=== PATIENT | male | born 1945 | race Caucasian/White ===

== ENCOUNTER 2025-05-26 16:25 | Observation (INO) | payer MEDICARE, BC, SELFPAY ==
[2025-05-26 10:23] VITALS: BP 121/79
[2025-05-26 12:00] VITALS: BP 118/69
[2025-05-26] MEDS: NSS 1000 IV (12:17)
--- NOTE | 2025-05-26 12:36 | ED.GENMED ---
History of Present Illness
<Kamran Dawn PA-C - Last Filed: 05/26/25 14:41>
General
Chief Complaint: Fall
Time Seen by Provider: 05/26/25 11:22
History of Present Illness
History of Present Illness:
80-year-old male with history of dementia presents to the emergency department with his spouse and son for evaluation of increasing falls over the past week. They state that he initially had a fall in February and was seen at [facility] where he
was diagnosed with an intracranial hemorrhage and multiple rib fractures. He was sent to rehab for a short period of time and since being discharged from rehab greater than 1 month ago he has been at his baseline. He does have shuffling gait but
does not fall often until the past week. Seems to have decreased p.o. intake and decreased interaction with family as well. History is unable to be obtained from the patient secondary to severe dementia. 2 of the 3 falls were witnessed, no known
head strike. He has not been shown to complain of any pain whatsoever
Review of Systems
<Kamran Dawn PA-C - Last Filed: 05/26/25 14:41>
Review of Systems
Allergies reviewed?: Yes
All Other Systems: ROS reviewed and negative except as documented in HPI and ROS
Phy Exam
<Kamran Dawn PA-C - Last Filed: 05/26/25 14:41>
Physical Exam
Physical Exam:
GEN: Chronically ill-appearing, thin and underweight, no distress
HEENT: Normocephalic and atraumatic, oral mucosa moist, no scleral icterus
Cardiac: Regular rate
Lung: No respiratory distress, no tachypnea
MSK: No gross deformity or injuries. No midline C/T/L-spine tenderness, pelvis stable with no crepitus, bilateral hip range of motion normal
Skin: Good color, no pallor or jaundice, no rashes
Neuro: Alert, minimally interactive, follows commands
Psych: Calm, cooperative
Course
<Kamran Dawn PA-C - Last Filed: 05/26/25 14:41>
Orders/Labs/Results
Orders:
Orders
05/26/25 11:57
0.9% Sodium Chloride 1000 ml [Nss] 1,000 ml IV BOLUS
05/26/25 11:58
CT Head W/o Iv Contrast Urgent
Comment:
Reason For Exam: multiple falls
05/26/25 12:14
Basic Metabolic Panel Urgent
Complete Blood Count/With Diff Urgent
05/26/25 12:35
Urinalysis Reflex To Culture Urgent
Date Specimen was Collected: 05/26/25
Time Specimen was Collected: 12:19
Urine Microscopic Reflex Cult Urgent
Urine Culture Urgent
RAJINDER Source: U
Specimen Description:
Date Specimen was Collected: 05/26/25
Time Specimen was Collected: 12:19
Abnormal Lab Results
05/26/25 05/26/25
12:14 12:35
RBC 4.68 L 10^6/uL
(4.70-6.10)
Absolute Neuts (auto) 7.0 H 10^3/uL
(1.4-6.5)
Absolute Monos (auto) 1.0 H 10^3/uL
(0.1-0.6)
Lymphocytes % 17.9 L %
(20.5-51.1)
Monocytes % 9.8 H %
(1.7-9.3)
Urine Ketones 1+ A
(Negative)
Leukocyte Esterase Rfl 1+ A
(Negative)
Urine Bacteria (Reflex) Moderate A
(Negative)
Urine Albumin (Reflex) 1+ A
(Neg - Trace)
05/26/25 12:14
05/26/25 12:14
Vital Signs
Initial and Last Documented VS:
Initial Vital Signs
Pulse Resp BP Pulse Ox
94 16 121/79 97
05/26/25 10:23 05/26/25 10:23 05/26/25 10:23 05/26/25 10:23
Last Documented Vital Signs
Pulse Resp BP Pulse Ox
88 16 118/69 97
05/26/25 12:00 05/26/25 12:00 05/26/25 12:00 05/26/25 12:38
<Shane Lancaster, DO - Last Filed: 05/26/25 14:25>
Orders/Labs/Results
Orders:
Orders
05/26/25 11:57
0.9% Sodium Chloride 1000 ml [Nss] 1,000 ml IV BOLUS
05/26/25 11:58
CT Head W/o Iv Contrast Urgent
Comment:
Reason For Exam: multiple falls
05/26/25 12:14
Basic Metabolic Panel Urgent
Complete Blood Count/With Diff Urgent
05/26/25 12:35
Urinalysis Reflex To Culture Urgent
Date Specimen was Collected: 05/26/25
Time Specimen was Collected: 12:19
Urine Microscopic Reflex Cult Urgent
Urine Culture Urgent
RAJINDER Source: U
Specimen Description:
Date Specimen was Collected: 05/26/25
Time Specimen was Collected: 12:19
Abnormal Lab Results
05/26/25 05/26/25
12:14 12:35
RBC 4.68 L 10^6/uL
(4.70-6.10)
Absolute Neuts (auto) 7.0 H 10^3/uL
(1.4-6.5)
Absolute Monos (auto) 1.0 H 10^3/uL
(0.1-0.6)
Lymphocytes % 17.9 L %
(20.5-51.1)
Monocytes % 9.8 H %
(1.7-9.3)
Urine Ketones 1+ A
(Negative)
Leukocyte Esterase Rfl 1+ A
(Negative)
Urine Bacteria (Reflex) Moderate A
(Negative)
Urine Albumin (Reflex) 1+ A
(Neg - Trace)
05/26/25 12:14
05/26/25 12:14
Vital Signs
Initial and Last Documented VS:
Initial Vital Signs
Pulse Resp BP Pulse Ox
94 16 121/79 97
05/26/25 10:23 05/26/25 10:23 05/26/25 10:23 05/26/25 10:23
Last Documented Vital Signs
Pulse Resp BP Pulse Ox
88 16 118/69 97
05/26/25 12:00 05/26/25 12:00 05/26/25 12:00 05/26/25 12:38
<Kamran Dawn PA-C - Last Filed: 05/26/25 14:41>
MDM/Problems Addressed
MDM/Problems Addressed:
Unfortunately that the patient's spouse does not feel as though she can continue to care for him given his progressive symptoms. His workup reveals no acute medical pathology and CT shows no evidence for traumatic injury to the brain. Will admit
to the hospitalist service for further management and placement considerations
<Kamran Dawn PA-C - Last Filed: 05/26/25 14:41>
*Pulse Oximetry
SaO2: 97
Oxygen Mode of Delivery: Room air
Patient hypoxic: no
*Critical Care Note
Total Time (30-74mins, 75-104mins- exclusive of procedures): Not Applicable
ED Attending Note
<Kamran Dawn PA-C - Last Filed: 05/26/25 14:41>
-
Portions of this chart may have been created with voice recognition software.� Occasional wrong word or��sound alike� substitutions may have occurred due to the inherent limitations of voice recognition software.
<Shane Lancaster, DO - Last Filed: 05/26/25 14:25>
ED Attending Note
Patient seen and examined by attending physician: Yes
I performed the substantive portion of visit, reviewed & personally made and approve the management plan that is documented in note by myself or KEELY.: Yes
ED Attending Note:
The patient has been having weeks of functional decline. The patient did have a head bleed in the past but CT today is unremarkable. Urinalysis does not show any clear sign of infection. CBC and chemistries unremarkable. However the patient has
worsening functional decline, advanced age, significant aphasia, appears generally weak, and can no longer care for him at home.
Discharge Plan
Departure
Patient Disposition: Admit
Date of Disposition: 05/26/25
Time of Disposition: 14:11
Presentation/result/management discussed w/ accepting MD/DO: Hospitalist
Discharge Problem:
Adult failure to thrive, Dementia
Referrals:
Haris Trevino MD [Family Provider, Family Practice]
Interventions
Interventions:
*Risk Screen - Suicide Last Done: 05/26/25 11:33
*General Assessment Last Done: 05/26/25 11:33
*Neglect/Abuse Screening Last Done: 05/26/25 11:33
*ED- Fall Risk Assessment Last Done: 05/26/25 11:33
ED-Musculoskeletal Assessment Last Done: 05/26/25 11:33
ED- Neurological Assessment Last Done: 05/26/25 11:33
ED-Skin Assessment Last Done: 05/26/25 11:33
Discharge Date and Time
Print Language: GEORGIAN
[2025-05-26 12:40] LABS: Hematocrit 43.4 % (39.0-52.0); Hemoglobin 14.5 g/dL (13.0-18.0); Mean Corp Hgb Conc. 33.4 g/dL (33.0-37.0); Mean Corpuscular Volume 92.7 fL (80.0-94.0); Nucleated Red Blood Cells % 0 % (-); Platelet Count 204 10^3/uL (130-400); Red Cell Dist. Width 13.5 % (11.5-14.5)
[2025-05-26 12:53] LABS: Blood Urea Nitrogen 17 mg/dl (9-20); Calcium 9.2 mg/dl (8.4-10.2); Carbon Dioxide 29 mmol/L (22-30); Chloride 106 mmol/L (98-107); Glucose 98 mg/dl (70-99); Sodium 137 mmol/L (135-145); eGFR > 60.00
[2025-05-26 13:20] LABS: Urine Character Clear (Clear)
[2025-05-26 13:37] LABS: Urine Red Blood Cell 0-2 /HPF (0-2); Urine White Cell 0-2 /HPF (0-5)
--- NOTE | 2025-05-26 14:58 | HPS.HSE ---
Addendum entered and electronically signed by Edgar Russo MD 06/07/25 21:18:
Home meds not available at time of admission.
Original Note:
Family Physician
-
Family Physician: Haris Trevino
Chief Complaint
-
falls
History of Present Illness
80-year-old male past medical history of severe dementia with agitation, recent brain hemorrhage in February, cervical spine fracture in February, nephrolithiasis, prostate cancer status post TURP, presenting for increasing falls since February. He had a fall
in February and was seen at [facility] where he was diagnosed with intracranial hemorrhage and multiple rib fractures and spine fracture. Sent back to rehab for short period of time and then discharged home. He has a chronic shuffling gait
which has gotten worse.
He was diagnosed with dementia in 2019. He was seeing neurology. At baseline he cannot speak and he has very advanced dementia. He sometimes does get aggressive recently.
He has had cough for the past few weeks. No shortness of breath. He has been having regular bowel movements. No fever, vomiting or diarrhea. He has been eating regular food but recently did have some difficulty swallowing.
notes that currently he looks uncomfortable and he is having occasional jerking movements.
He is a former smoker. No longer smokes or drinks alcohol.
Medical History
Past Medical History
Past Medical History: Reports Other (severe dementia with agitation, recent brain hemorrhage in February, cervical spine fracture in February, nephrolithiasis, prostate cancer status post TURP)
Past Surgical History: Reports None
Social History
Tobacco: Former Smoker
Alcohol: Former
Drug: None
Family History
Family History: Not pertinent
Allergies / Home Medications
Allergies reflects when Allergies were last updated in [facility].
Home Medications with original date entered in [facility]
Allergy/Medication List:
Allergies
Allergy/AdvReac Type Severity Reaction Status Date / Time
No Known Allergies Allergy Unverified 05/26/25 10:26
Review of Systems
-
History Source: Patient
A 12 point ROS was completed and negative except as noted: Yes
Constitutional: Reports No Symptoms
EENT: Reports No Symptoms
Respiratory: Reports No Symptoms
Cardiac: Reports No Symptoms
Abdomen/GI: Reports No Symptoms
: Reports No Symptoms
Musculoskeletal: Reports No Symptoms
Skin: Reports No Symptoms
Neurological: Reports No Symptoms
Endocrine: Reports No Symptoms
Hematologic/Lymphatic: Reports No Symptoms
Psych: Reports No Symptoms
Physical Exam
Vital Signs
Vital Signs
Pulse Resp BP Pulse Ox
88 16 118/69 97
05/26/25 12:00 05/26/25 12:00 05/26/25 12:00 05/26/25 12:38
Physical Exam
General: Well Developed, Well Nourished and No Apparent Distress
HEENT: NormoCephalic, Moist mucous membranes and Atraumatic
Respiratory: Clear
Cardiac: S1/S2 and Regular Rhythm; No Murmur or Rub
GI: Soft, Non Tender, Non Distended and Normal Bowel Sounds; No Organomegaly
Rectal: Deferred by Provider
Musculoskeletal: No Clubbing, No Cyanosis and No Edema
Skin: No Rash
Neuro: Nonfocal/grossly intact
Laboratory Results
-
05/26/25 12:14
05/26/25 12:14
Laboratory Results
Total Bilirubin Cancelled 05/26/25 12:14
AST Cancelled 05/26/25 12:14
ALT Cancelled 05/26/25 12:14
Alkaline Phosphatase Cancelled 05/26/25 12:14
Data Reviewed
-
Lab Data: Labs Reviewed by me
Old Records: Reviewed
Impression/Plan
-
IMPRESSION:
PLAN:
# Ambulatory dysfunction/falls secondary to progressive severe dementia
-On examination may be currently having myoclonic jerks due to severe Alzheimer's dementia
- CT head shows no acute abnormality
-Urinalysis unremarkable
-Check chest x-ray to evaluate for aspiration pneumonia given cough for 3 weeks
-Check speech and swallow evaluation
- PT/OT, case management, needs memory care
- Continue donepezil, memantine, aripiprazole
Severe dementia with agitation
Recent brain hemorrhage
Recent cervical spine fracture
History of nephrolithiasis
Prostate cancer status post TURP
Full code
DVT prophylaxis�heparin
Regular diet
[2025-05-26 15:18] VITALS: BP 114/72
--- NOTE | 2025-05-26 17:14 | EDCM ---
Addendum entered by Florecita Rainey 05/26/25 17:24:
Pt was at SNF in February after fall, unsure of facility name.
Original Note:
CM reviewed chart and met with pt's bedside in ED. Pt lives with his in 2 story home, they do not go upstairs, have first floor set up.
Needs assistance with ADLs and personal care, is primary caregiver, daughter comes over 4 hours a day to assist with care and allow to run errands, son also assists with personal care. Pt ambulates independently but has had several falls
this week.
Son recently installed tub rails.
Pt's does not feel she can care for him at home anymore, is considering [facility] for memory care but has not had a chance to visit yet. We discussed PT/OT eval but that STR would be challenging without a discharge plan.
HNOG reviewed and signed, copy given to .
Confirms prescription coverage.
Hx [facility] in past, no hx SNF
PCP: Haris Trevino
Pharmacy: [facility]
CM will continue to follow for all discharge planning needs.
[2025-05-26 18:37] VITALS: BP 132/77
--- NOTE | 2025-05-26 20:30 | PTCARENOTE ---
Patient received in room on unit upon change of shift. Patient in bed. No signs of pain or discomfort. AAOx1 to self. Agitated and aggressive with staff at times. Unable to answer majority of admission questions. Call jiménez with in reach. Bed alarm
on bed and functioning properly.
[2025-05-26 20:52] VITALS: BMI 25.3
[2025-05-26] MEDS: HEPARIN 5000 UNITS SC (21:07)
[2025-05-26 23:27] VITALS: BP 135/85
[2025-05-27 07:58] LABS: Hematocrit 41.8 % (39.0-52.0); Hemoglobin 14.1 g/dL (13.0-18.0); Mean Corp Hgb Conc. 33.7 g/dL (33.0-37.0); Mean Corpuscular Volume 92.1 fL (80.0-94.0); Nucleated Red Blood Cells % 0 % (-); Platelet Count 194 10^3/uL (130-400); Red Cell Dist. Width 13.2 % (11.5-14.5)
[2025-05-27 08:00] VITALS: BP 116/77
[2025-05-27 08:21] LABS: ALT (SGPT) 16 U/L (0-50); AST (SGOT) 28 U/L (17-59); Albumin 3.6 g/dl (3.5-5.0); Alkaline Phosphatase 123 U/L (38-126); Blood Urea Nitrogen 13 mg/dl (9-20); Calcium 9.1 mg/dl (8.4-10.2); Carbon Dioxide 28 mmol/L (22-30); Chloride 108 mmol/L (98-107); Estimated Creatinine Clearance 61 ml/min; Glucose 101 mg/dl (70-99); Potassium 4.4 mmol/L (3.5-5.1); Sodium 139 mmol/L (135-145); Total Protein 6.3 g/dl (6.3-8.2); eGFR > 60.00
[2025-05-27] MEDS: HEPARIN 5000 UNITS SC ×2 (09:06→20:01)
[2025-05-27 10:55] VITALS: BP 165/89; PULSE 79; O2SAT 97
--- NOTE | 2025-05-27 12:48 | W.PN.HOSP.TC ---
Today's Communication/Plan
-
Continue with his home medication
Case management to look into disposition.
Assessment / Plan
Assessment / Plan
# Ambulatory dysfunction/falls secondary to progressive severe dementia
-On examination may be currently having myoclonic jerks due to severe Alzheimer's dementia
- CT head shows no acute abnormality
-Urinalysis unremarkable
-chest x-ray neg for acute findings
- SPT following
- PT/OT, case management, needs memory care
- Continue donepezil, memantine, aripiprazole
Severe dementia without current agitation
Recent brain hemorrhage
Recent cervical spine fracture
History of nephrolithiasis
Prostate cancer status post TURP
Full code
DVT prophylaxis�heparin
Regular diet
Anticipated Discharge: Within 24 hours
Subjective/Interval History
-
Date of Service: May 27, 2025
No events overnight.
at bedside-patient has been having frequent falls at home and was getting difficult to be taken care due to mobility issues.
Objective Data
-
Labs:
Laboratory Results
05/27/25
06:36
WBC 9.0
Hgb 14.1
Hct 41.8
Plt Count 194
Sodium 139
Potassium 4.4
Chloride 108 H
Carbon Dioxide 28
BUN 13
Creatinine 0.9
Glucose 101 H
Calcium 9.1
Total Bilirubin 0.7
AST 28
ALT 16
Alkaline Phosphatase 123
Vital Signs:
Vital Signs
Temp Pulse Resp BP Pulse Ox
98.1 F 83 19 116/77 97
05/27/25 08:00 05/27/25 08:00 05/27/25 08:00 05/27/25 08:00 05/27/25 08:48
I&O
05/26/25 05/27/25 05/28/25
06:59 06:59 06:59
Intake Total 480 / 480
Balance 480 / 480
Review of Systems
-
Unable to obtain full review of systems at this time due to: Dementia
Physical Exam
-
General: Comfortable
Respiratory: Clear to Auscultation and Non Labored Respirations; Negative Accessory Resp Muscle Use
Cardiac: Regular Rhythm and S1/S2; Negative Tachycardic
GI: Soft
Neuro: Awake, Alert and Other (few myoclonic jerks evident); Negative Oriented
Psych: Calm
Data Reviewed
-
Labs: Labs Reviewed by me
[2025-05-27] MEDS: ABILIFY 2 MG PO (14:25)
--- NOTE | 2025-05-27 15:03 | CM ---
CM reviewed chart, consult received for custodial placement.
CM had long discussion with patients , Villa, regarding placement for patient.
CM discussed therapy recommendation of SNF- patient does not have inpatient stay, would need to identify if patient qualifies for waiver program.
reports patient was at [facility] SN[facility] in past, ended up brining patient home as he was getting up/out of bed.
Provided list of Memory Care Facilities, provided information for Kassidy Garcias at [facility]- does not want to be contacted by Kassidy yet and would like to speak to her daughter first.
reports she is caregiver for patient at home, daughter comes to home four hours a day to assist with care.
reports she has four children, all local, who provide assistance.
shares she is in process of moving into a [place] style home which will be more accessible for patient, likely not until November.
reports she and her have had a very blessed, fulfilled life.
will discuss with her daughter about facilities to start touring, aware also an option for 24/7 care in the home.
Plan; looking into Memory Care Placement vs 24 hr care
[2025-05-27 16:00] VITALS: BP 119/63
[2025-05-27] MEDS: NAMENDA 10 MG PO (20:01)
[2025-05-27] MEDS: ARICEPT 10 MG PO (22:13)
[2025-05-27 23:37] VITALS: BP 124/76
[2025-05-28 07:30] VITALS: BP 137/85
[2025-05-28] MEDS: ABILIFY 2 MG PO (08:11)
[2025-05-28] MEDS: NAMENDA 10 MG PO ×2 (08:11→20:49)
[2025-05-28] MEDS: HEPARIN 5000 UNITS SC ×2 (08:11→20:49)
--- NOTE | 2025-05-28 13:01 | W.PN.HOSP.TC ---
Today's Communication/Plan
-
Medically clear for Dc.
Assessment / Plan
Assessment / Plan
Impression:
80-year-old male past medical history of severe dementia with agitation, recent brain hemorrhage in February, cervical spine fracture in February, nephrolithiasis, prostate cancer status post TURP, presenting for increasing falls since February. He had a fall
in February and was seen at [facility] where he was diagnosed with intracranial hemorrhage and multiple rib fractures and spine fracture. Sent back to rehab for short period of time and then discharged home. He has a chronic shuffling gait
which has gotten worse. He was diagnosed with dementia in 2019. He was seeing neurology. At baseline he cannot speak and he has very advanced dementia. He sometimes does get aggressive recently. He has had cough for the past few weeks. No
shortness of breath. He has been having regular bowel movements. No fever, vomiting or diarrhea. He has been eating regular food but recently did have some difficulty swallowing. notes that currently he looks uncomfortable and he is having
occasional jerking movements. He is a former smoker. No longer smokes or drinks alcohol.
Assessment/plan:
ambulatory dysfunction/falls secondary to progressive severe dementia
-On examination may be currently having myoclonic jerks due to severe Alzheimer's dementia
- CT head shows no acute abnormality
-Urinalysis unremarkable
-chest x-ray neg for acute findings
- SPT following
- PT/OT, case management, needs memory care
- Continue donepezil, memantine, aripiprazole
Severe dementia without current agitation
Recent brain hemorrhage
Recent cervical spine fracture
History of nephrolithiasis
Prostate cancer status post TURP
CODE STATUS: Full code
DVT prophylaxis: Heparin
Diet: Regular diet
Disposition: Medically clear for Dc.
Total time spent on today's encounter was 50 minutes which included time spent in counseling the patient/family regarding diagnosis and treatment plan as listed above, goals of care, and symptom management. Case was discussed with nursing staff,
specialists, and care coordinators/case management. All labs and imaging personally reviewed by me. Remainder the time spent in detailed review of previous records, lab data, imaging, and other medical provider documentation.
Anticipated Discharge: Today
Subjective/Interval History
-
Date of Service: May 28, 2025
Patient seen and examined at bedside, denies any chest pain or shortness of breath, occasional cough.
Objective Data
-
Vital Signs:
Vital Signs
Temp Pulse Resp BP Pulse Ox
98.2 F 77 18 137/85 96
05/28/25 07:30 05/28/25 07:30 05/28/25 07:30 05/28/25 07:30 05/28/25 07:30
I&O
05/27/25 05/28/25 05/29/25
06:59 06:59 06:59
Intake Total 480 / 480
Balance 480 / 480
Physical Exam
-
General: Well Developed, Well Nourished, No Apparent Distress and Comfortable
HEENT: Normocephalic, Atraumatic, Moist Mucous Membranes, No Ptosis, PERRLA and Nose Appears Normal
Respiratory: Rales and Non Labored Respirations
Cardiac: Regular Rhythm and S1/S2
Breast: Deferred by me
GI: Soft, Nontender, Nondistended and Normal Bowel Sounds
Genito-urinary: No Costovertebral Tender
Musculoskeletal: No Clubbing, No Cyanosis and No Edema
Skin: Warm
Neuro: Awake, Alert, Oriented, AO x 3 and No Motor Deficits
Psych: Calm
[2025-05-28 15:00] VITALS: BP 114/72
[2025-05-28] MEDS: ARICEPT 10 MG PO (21:05)
[2025-05-28 23:43] VITALS: BP 106/74
[2025-05-29 07:00] VITALS: BP 124/79
[2025-05-29] MEDS: NAMENDA 10 MG PO ×2 (07:39→19:33)
[2025-05-29] MEDS: ABILIFY 2 MG PO (07:40)
[2025-05-29] MEDS: HEPARIN 5000 UNITS SC ×2 (07:40→19:32)
--- NOTE | 2025-05-29 11:45 | PTOTSP ---
Speech Language Pathology
Pt seen for dysphagia tx. Seen with P.O. trials of thin liquids, puree, and regular solids. Pt required assistance with feeding as no initiation noted when food placed in pt's hand. Prolonged mastication noted with trace diffuse oral residue.
This cleared with multiple provided liquid washes. No overt signs of aspiration. WBC WNL, and no PNA noted on CXR on admission.
Recommend:
(1) Downgrade to IDDSI Level 6 (soft/bite-sized) and thin liquids
(2) Aspiration precautions: full supervision with assist as needed, slow rate, ensure oral cavity clear post P.O. intake
(3) Meds crushed in puree as able
(4) CHILDCARE ATTENDANT to continue to follow
[2025-05-29 13:39] VITALS: BP 110/75; BP 123/77; PULSE 77; O2SAT 98
--- NOTE | 2025-05-29 13:51 | W.PN.HOSP.TC ---
Today's Communication/Plan
-
Medically clear for Dc.
Assessment / Plan
Assessment / Plan
Impression:
80-year-old male past medical history of severe dementia with agitation, recent brain hemorrhage in February, cervical spine fracture in February, nephrolithiasis, prostate cancer status post TURP, presenting for increasing falls since February. He had a fall
in February and was seen at [facility] where he was diagnosed with intracranial hemorrhage and multiple rib fractures and spine fracture. Sent back to rehab for short period of time and then discharged home. He has a chronic shuffling gait
which has gotten worse. He was diagnosed with dementia in 2019. He was seeing neurology. At baseline he cannot speak and he has very advanced dementia. He sometimes does get aggressive recently. He has had cough for the past few weeks. No
shortness of breath. He has been having regular bowel movements. No fever, vomiting or diarrhea. He has been eating regular food but recently did have some difficulty swallowing. notes that currently he looks uncomfortable and he is having
occasional jerking movements. He is a former smoker. No longer smokes or drinks alcohol.
Physical therapy recommended rehab, pending placement.
Assessment/plan:
ambulatory dysfunction/falls secondary to progressive severe dementia
-On examination may be currently having myoclonic jerks due to severe Alzheimer's dementia
- CT head shows no acute abnormality
-Urinalysis unremarkable
-chest x-ray neg for acute findings
- SPT following
- PT/OT, case management, needs memory care
- Continue donepezil, memantine, aripiprazole
Severe dementia without current agitation
Recent brain hemorrhage
Recent cervical spine fracture
History of nephrolithiasis
Prostate cancer status post TURP
CODE STATUS: Full code
DVT prophylaxis: Heparin
Diet: Regular diet
Disposition: Medically clear for Dc.
Total time spent on today's encounter was 50 minutes which included time spent in counseling the patient/family regarding diagnosis and treatment plan as listed above, goals of care, and symptom management. Case was discussed with nursing staff,
specialists, and care coordinators/case management. All labs and imaging personally reviewed by me. Remainder the time spent in detailed review of previous records, lab data, imaging, and other medical provider documentation.
Anticipated Discharge: Today
Subjective/Interval History
-
Date of Service: May 29, 2025
Patient seen and examined at bedside, awake but not fully oriented.
Objective Data
-
Vital Signs:
Vital Signs
Temp Pulse Resp BP Pulse Ox
97.8 F 68 16 124/79 95
05/29/25 07:00 05/29/25 07:00 05/29/25 07:00 05/29/25 07:00 05/29/25 07:00
Physical Exam
-
General: Well Developed, Well Nourished, No Apparent Distress and Comfortable
HEENT: Normocephalic, Atraumatic, Moist Mucous Membranes, No Ptosis, PERRLA and Nose Appears Normal
Respiratory: Rales and Non Labored Respirations
Cardiac: Regular Rhythm and S1/S2
Breast: Deferred by me
GI: Soft, Nontender, Nondistended and Normal Bowel Sounds
Genito-urinary: No Costovertebral Tender
Musculoskeletal: No Clubbing, No Cyanosis and No Edema
Skin: Warm
Neuro: Awake
Psych: Calm and Confused
[2025-05-29 14:54] VITALS: BP 112/75
--- NOTE | 2025-05-29 16:11 | CM ---
Chart reviewed. Spouse planning for memory care placement at d/c. Spoke w/ spouse, shared she is considering [facility] and [facility]. Spouse agreeable for CM to send information as CM made her aware that placement to a new residential
facility can be timely. Spouse stated she plans to call and tour facilities tomorrow. CM encouraged spouse to be mindful of timing as patient is medically stable.
Referral sent to [facility] [place]
[facility] asking for spouse to call sap basis administrator to speak w/ her to review if patient will be appropriate. [facility] is not asking for any clinical information at this time. Updated spouse on this request.
Plan: Memory Care Placement
[2025-05-29] MEDS: ARICEPT 10 MG PO (21:29)
[2025-05-29 23:17] VITALS: BP 120/76
[2025-05-30 07:00] VITALS: BP 120/77
[2025-05-30] MEDS: NAMENDA 10 MG PO ×2 (08:11→21:44)
[2025-05-30] MEDS: ABILIFY 2 MG PO (08:11)
[2025-05-30] MEDS: HEPARIN 5000 UNITS SC ×2 (08:11→21:44)
--- NOTE | 2025-05-30 14:49 | W.PN.HOSP.TC ---
Today's Communication/Plan
-
medically stable pending placement. d/w CM.
Assessment / Plan
Assessment / Plan
Impression:
80-year-old male past medical history of severe dementia with agitation, recent brain hemorrhage in February, cervical spine fracture in February, nephrolithiasis, prostate cancer status post TURP, presenting for increasing falls since February. He had a fall
in February and was seen at [facility] where he was diagnosed with intracranial hemorrhage and multiple rib fractures and spine fracture. Sent back to rehab for short period of time and then discharged home. He has a chronic shuffling gait
which has gotten worse. He was diagnosed with dementia in 2019. He was seeing neurology. At baseline he cannot speak and he has very advanced dementia. He sometimes does get aggressive recently. He has had cough for the past few weeks. No
shortness of breath. He has been having regular bowel movements. No fever, vomiting or diarrhea. He has been eating regular food but recently did have some difficulty swallowing. notes that currently he looks uncomfortable and he is having
occasional jerking movements. He is a former smoker. No longer smokes or drinks alcohol.
Physical therapy recommended rehab, pending placement.
Assessment/plan:
ambulatory dysfunction/falls secondary to progressive severe dementia
- On examination may be currently having myoclonic jerks due to severe Alzheimer's dementia
- CT head shows no acute abnormality
- Urinalysis unremarkable
- chest x-ray neg for acute findings
- SPT following
- PT/OT, case management, needs memory care
- continue IMMIGRATION MANAGER donepezil, memantine, aripiprazole
Severe dementia without current agitation
Recent brain hemorrhage
Recent cervical spine fracture
History of nephrolithiasis
Prostate cancer status post TURP
Code: Full code
DVT prophylaxis: SC Heparin
Disposition: medically stable pending placement. d/w CM.
Anticipated Discharge: 24 - 48 hours
Subjective/Interval History
-
Date of Service: May 30, 2025
resting comfortably, no new issues overnight
awaiting placement
Objective Data
-
Vital Signs:
Vital Signs
Temp Pulse Resp BP Pulse Ox
97.8 F 67 16 120/77 97
05/30/25 07:00 05/30/25 07:00 05/30/25 07:00 05/30/25 07:00 05/30/25 07:00
I&O
05/29/25 05/30/25 05/31/25
06:59 06:59 06:59
Intake Total 1020 / 1020
Balance 1020 / 1020
Physical Exam
-
General: No Apparent Distress
HEENT: Normocephalic and Atraumatic
Respiratory: Negative Wheezes
Cardiac: Regular Rhythm and S1/S2
GI: Soft
Neuro: Awake
Psych: Apparent Dementia
Data Reviewed
-
Total Time Spent with Patient (in minutes): 41
Labs: Labs Reviewed by me
[2025-05-30 14:54] VITALS: BP 122/80; PULSE 90; O2SAT 94
[2025-05-30 15:00] VITALS: BP 141/77
--- NOTE | 2025-05-30 16:09 | CM ---
CM spoke w/ spouse, confirmed that she is planning to tour [address] tomorrow at 3pm and [facility] on Wednesday
CM met w/ Teddy/email marketing executive at [facility], who completed a bedside assessment for patient today. Teddy stated everything looks good, confirmed spouse is touring tomorrow where she will get more information and if spouse is agreeable to
move forward, can plan for patient to admit following the required documentation. Teddy will follow up w/ REY tomorrow.
Plan: Possible admission to [facility]. Spouse to tour tomorrow
[2025-05-30] MEDS: ARICEPT 10 MG PO (21:44)
[2025-05-30 23:41] VITALS: BP 167/89
[2025-05-31 06:41] VITALS: BP 125/80
[2025-05-31 08:06] VITALS: BP 142/86
[2025-05-31] MEDS: HEPARIN 5000 UNITS SC ×2 (10:13→21:01)
[2025-05-31] MEDS: ABILIFY 2 MG PO (10:13)
[2025-05-31] MEDS: NAMENDA 10 MG PO ×2 (10:13→21:00)
[2025-05-31 10:42] VITALS: BP 126/79; PULSE 97
--- NOTE | 2025-05-31 13:19 | W.PN.HOSP.TC ---
Today's Communication/Plan
-
awaiting placement
Assessment / Plan
Assessment / Plan
Impression:
80-year-old male past medical history of severe dementia with agitation, recent brain hemorrhage in February, cervical spine fracture in February, nephrolithiasis, prostate cancer status post TURP, presenting for increasing falls since February. He had a fall
in February and was seen at [facility] where he was diagnosed with intracranial hemorrhage and multiple rib fractures and spine fracture. Sent back to rehab for short period of time and then discharged home. He has a chronic shuffling gait
which has gotten worse. He was diagnosed with dementia in 2019. He was seeing neurology. At baseline he cannot speak and he has very advanced dementia. He sometimes does get aggressive recently. He has had cough for the past few weeks. No
shortness of breath. He has been having regular bowel movements. No fever, vomiting or diarrhea. He has been eating regular food but recently did have some difficulty swallowing. notes that currently he looks uncomfortable and he is having
occasional jerking movements. He is a former smoker. No longer smokes or drinks alcohol.
Physical therapy recommended rehab, pending placement.
Assessment/plan:
ambulatory dysfunction/falls secondary to progressive severe dementia
- CT head shows no acute abnormality
- Urinalysis unremarkable
- chest x-ray neg for acute findings
- SPT following
- PT/OT, case management, needs memory care
- continue DIRECTOR ATHLETIC donepezil, memantine, aripiprazole
Severe dementia without current agitation
Recent brain hemorrhage
Recent cervical spine fracture
History of nephrolithiasis
Prostate cancer status post TURP
Code: Full code
DVT prophylaxis: SC Heparin
Disposition: medically stable pending placement. d/w CM.
Anticipated Discharge: 24 - 48 hours
Subjective/Interval History
-
Date of Service: May 31, 2025
no acute overnight events
Objective Data
-
Vital Signs:
Vital Signs
Temp Pulse Resp BP Pulse Ox
97.9 F 75 12 142/86 95
05/31/25 08:06 05/31/25 08:06 05/31/25 08:06 05/31/25 08:06 05/31/25 08:06
I&O
05/30/25 05/31/25 06/01/25
06:59 06:59 06:59
Intake Total 1020 / 1020 200 / 200
Balance 1020 / 1020 200 / 200
Physical Exam
-
General: No Apparent Distress
HEENT: Normocephalic and Atraumatic
Respiratory: Negative Wheezes
Cardiac: Regular Rhythm and S1/S2
GI: Soft and Nontender
Genito-urinary: No Costovertebral Tender
Neuro: Awake
Psych: Calm and Apparent Dementia
Data Reviewed
-
Total Time Spent with Patient (in minutes): 41
Labs: Labs Reviewed by me
[2025-05-31 15:05] VITALS: BP 110/74
[2025-05-31] MEDS: ARICEPT 10 MG PO (21:00)
[2025-05-31 23:47] VITALS: BP 129/81
[2025-06-01 07:00] VITALS: BP 127/85
[2025-06-01] MEDS: NAMENDA 10 MG PO ×2 (07:29→20:37)
[2025-06-01] MEDS: ABILIFY 2 MG PO (07:29)
[2025-06-01] MEDS: HEPARIN 5000 UNITS SC ×2 (07:29→20:37)
--- NOTE | 2025-06-01 13:56 | W.PN.HOSP.TC ---
Today's Communication/Plan
-
medically stable pending placement. d/w CM.
Assessment / Plan
Assessment / Plan
Impression:
80-year-old male past medical history of severe dementia with agitation, recent brain hemorrhage in February, cervical spine fracture in February, nephrolithiasis, prostate cancer status post TURP, presenting for increasing falls since February. He had a fall
in February and was seen at [facility] where he was diagnosed with intracranial hemorrhage and multiple rib fractures and spine fracture. Sent back to rehab for short period of time and then discharged home. He has a chronic shuffling gait
which has gotten worse. He was diagnosed with dementia in 2019. He was seeing neurology. At baseline he cannot speak and he has very advanced dementia. He sometimes does get aggressive recently. He has had cough for the past few weeks. No
shortness of breath. He has been having regular bowel movements. No fever, vomiting or diarrhea. He has been eating regular food but recently did have some difficulty swallowing. notes that currently he looks uncomfortable and he is having
occasional jerking movements. He is a former smoker. No longer smokes or drinks alcohol.
Physical therapy recommended rehab, pending placement.
Assessment/plan:
ambulatory dysfunction/falls secondary to progressive severe dementia
- CT head shows no acute abnormality
- Urinalysis unremarkable
- chest x-ray neg for acute findings
- SPT following
- PT/OT, case management, needs memory care
- continue DRY COLOR TESTER donepezil, memantine, aripiprazole
Severe dementia without current agitation
Recent brain hemorrhage
Recent cervical spine fracture
History of nephrolithiasis
Prostate cancer status post TURP
Code: Full code
DVT prophylaxis: SC Heparin
Disposition: medically stable pending placement. d/w CM.
Anticipated Discharge: Within 24 hours
Subjective/Interval History
-
Date of Service: June 01, 2025
no overnight events
Objective Data
-
Vital Signs:
Vital Signs
Temp Pulse Resp BP Pulse Ox
98 F 79 16 127/85 94
06/01/25 07:00 06/01/25 07:00 06/01/25 07:00 06/01/25 07:00 06/01/25 07:00
I&O
05/31/25 06/01/25 06/02/25
06:59 06:59 06:59
Intake Total 200 / 200 500 / 500
Balance 200 / 200 500 / 500
Physical Exam
-
General: No Apparent Distress
HEENT: Normocephalic and Atraumatic
Respiratory: Negative Wheezes
Cardiac: Regular Rhythm and S1/S2
GI: Soft
Genito-urinary: No Costovertebral Tender
Neuro: Awake
Psych: Calm and Apparent Dementia
Data Reviewed
-
Total Time Spent with Patient (in minutes): 41
Labs: Labs Reviewed by me
[2025-06-01 15:00] VITALS: BP 129/73
--- NOTE | 2025-06-01 16:25 | CM ---
CM spoke w/ spouse to follow up w/ [facility] and [facility] memory care facilities. Spouse stated she is considering [facility] as the tour was successful. Spouse stated she has some paperwork to complete and spoke w/ Teddy, interim executive
director, and is moving forward w/ [facility]. CM will cont to follow up w/ timeframe to admit patient once all documentation and paperwork is completed
Updated hospitalist
Plan: D/c to [facility], hopefully next week
[2025-06-01] MEDS: ARICEPT 10 MG PO (20:37)
[2025-06-01 23:30] VITALS: BP 119/78
[2025-06-02 07:00] VITALS: BP 104/75
[2025-06-02] MEDS: HEPARIN 5000 UNITS SC ×2 (07:54→19:58)
[2025-06-02] MEDS: NAMENDA 10 MG PO ×2 (07:54→19:58)
[2025-06-02] MEDS: ABILIFY 2 MG PO (07:54)
--- NOTE | 2025-06-02 10:54 | CM ---
Addendum entered by Nan Scales 06/02/25 11:33:
Medical Evaluation Form for [facility] received via email
Addendum entered by Nan Scales 06/02/25 11:26:
Spoke with patient's via phone; she confirmed discharge plan to [facility] when her is stable.
Original Note:
Case Management received a call from Teddy at [facility] # [phone]; he reported that patient's completed tour yesterday
Per Teddy, facility can accept patient on Wednesday; will need to have Medical Evaluation Form completed prior to admission.
Teddy was instructed to send Medical Evaluation form to via email for Attending to complete
--- NOTE | 2025-06-02 14:24 | W.PN.HOSP.TC ---
Today's Communication/Plan
-
medically stable pending placement. d/w CM.
Assessment / Plan
Assessment / Plan
Impression:
80-year-old male past medical history of severe dementia with agitation, recent brain hemorrhage in February, cervical spine fracture in February, nephrolithiasis, prostate cancer status post TURP, presenting for increasing falls since February. He had a fall
in February and was seen at [facility] where he was diagnosed with intracranial hemorrhage and multiple rib fractures and spine fracture. Sent back to rehab for short period of time and then discharged home. He has a chronic shuffling gait
which has gotten worse. He was diagnosed with dementia in 2019. He was seeing neurology. At baseline he cannot speak and he has very advanced dementia. He sometimes does get aggressive recently. He has had cough for the past few weeks. No
shortness of breath. He has been having regular bowel movements. No fever, vomiting or diarrhea. He has been eating regular food but recently did have some difficulty swallowing. notes that currently he looks uncomfortable and he is having
occasional jerking movements. He is a former smoker. No longer smokes or drinks alcohol.
Physical therapy recommended rehab, pending placement.
Assessment/plan:
ambulatory dysfunction/falls secondary to progressive severe dementia
- CT head shows no acute abnormality
- Urinalysis unremarkable
- chest x-ray neg for acute findings
- SPT following
- PT/OT, case management, needs memory care
- continue FELTMAKER donepezil, memantine, aripiprazole
Severe dementia without current agitation
Recent brain hemorrhage
Recent cervical spine fracture
History of nephrolithiasis
Prostate cancer status post TURP
Code: Full code
DVT prophylaxis: SC Heparin
Disposition: medically stable pending placement. d/w CM.
Anticipated Discharge: > 48 hours
Subjective/Interval History
-
Date of Service: June 02, 2025
resting comfortably, no overnight events
Objective Data
-
Vital Signs:
Vital Signs
Temp Pulse Resp BP Pulse Ox
97.9 F 69 16 104/75 95
06/02/25 07:00 06/02/25 07:00 06/02/25 07:00 06/02/25 07:00 06/02/25 07:00
I&O
06/01/25 06/02/25 06/03/25
06:59 06:59 06:59
Intake Total 500 / 500 240 / 240
Balance 500 / 500 240 / 240
Physical Exam
-
General: No Apparent Distress
HEENT: Normocephalic
Respiratory: Clear to Auscultation; Negative Wheezes
Cardiac: Regular Rhythm and S1/S2
GI: Soft and Nontender
Neuro: AO x 3
Psych: Calm
Data Reviewed
-
Total Time Spent with Patient (in minutes): 41
Labs: Labs Reviewed by me
[2025-06-02 15:36] VITALS: BP 107/55
[2025-06-02] MEDS: ARICEPT 10 MG PO (20:04)
[2025-06-02 23:43] VITALS: BP 111/72
[2025-06-03] MEDS: ABILIFY 2 MG PO (07:54)
[2025-06-03] MEDS: HEPARIN 5000 UNITS SC ×2 (07:54→19:57)
[2025-06-03] MEDS: NAMENDA 10 MG PO ×2 (07:54→19:58)
[2025-06-03 08:37] VITALS: BP 115/72
--- NOTE | 2025-06-03 12:59 | W.PN.HOSP.TC ---
Today's Communication/Plan
-
medically stable pending placement. d/w CM.
Assessment / Plan
Assessment / Plan
Impression:
80-year-old male past medical history of severe dementia with agitation, recent brain hemorrhage in February, cervical spine fracture in February, nephrolithiasis, prostate cancer status post TURP, presenting for increasing falls since February. He had a fall
in February and was seen at [facility] where he was diagnosed with intracranial hemorrhage and multiple rib fractures and spine fracture. Sent back to rehab for short period of time and then discharged home. He has a chronic shuffling gait
which has gotten worse. He was diagnosed with dementia in 2019. He was seeing neurology. At baseline he cannot speak and he has very advanced dementia. He sometimes does get aggressive recently. He has had cough for the past few weeks. No
shortness of breath. He has been having regular bowel movements. No fever, vomiting or diarrhea. He has been eating regular food but recently did have some difficulty swallowing. notes that currently he looks uncomfortable and he is having
occasional jerking movements. He is a former smoker. No longer smokes or drinks alcohol.
Physical therapy recommended rehab, pending placement.
Assessment/plan:
ambulatory dysfunction/falls secondary to progressive severe dementia
- CT head shows no acute abnormality
- Urinalysis unremarkable
- chest x-ray neg for acute findings
- SPT following
- PT/OT, case management, needs memory care
- continue MEDICAL FILE CLERK donepezil, memantine, aripiprazole
Severe dementia without current agitation
Recent brain hemorrhage
Recent cervical spine fracture
History of nephrolithiasis
Prostate cancer status post TURP
Code: Full code
DVT prophylaxis: SC Heparin
Disposition: medically stable pending placement. d/w CM.
Anticipated Discharge: Within 24 hours
Subjective/Interval History
-
Date of Service: June 03, 2025
no overnight events
Objective Data
-
Vital Signs:
Vital Signs
Temp Pulse Resp BP Pulse Ox
97.5 F 63 16 115/72 100
06/03/25 08:37 06/03/25 08:37 06/03/25 08:37 06/03/25 08:37 06/03/25 08:37
I&O
06/02/25 06/03/25 06/04/25
06:59 06:59 06:59
Intake Total 240 / 240 480 / 480
Balance 240 / 240 480 / 480
Physical Exam
-
General: No Apparent Distress
HEENT: Normocephalic and Atraumatic
Respiratory: Negative Wheezes
Cardiac: Regular Rhythm and S1/S2
GI: Soft
Genito-urinary: No Costovertebral Tender
Neuro: Awake
Psych: Calm
Data Reviewed
-
Total Time Spent with Patient (in minutes): 41
Labs: Labs Reviewed by me
[2025-06-03 15:00] VITALS: BP 122/64
[2025-06-03] MEDS: ARICEPT 10 MG PO (19:58)
[2025-06-03 22:58] VITALS: BP 134/84
[2025-06-04 08:03] VITALS: BP 111/70
[2025-06-04] MEDS: HEPARIN 5000 UNITS SC (08:36)
[2025-06-04] MEDS: ABILIFY 2 MG PO (08:36)
[2025-06-04] MEDS: NAMENDA 10 MG PO (08:36)
--- NOTE | 2025-06-04 09:42 | W.PN.HOSP.TC ---
Today's Communication/Plan
-
dc today
Assessment / Plan
Assessment / Plan
Impression:
80-year-old male past medical history of severe dementia with agitation, recent brain hemorrhage in February, cervical spine fracture in February, nephrolithiasis, prostate cancer status post TURP, presenting for increasing falls since February. He had a fall
in February and was seen at [facility] where he was diagnosed with intracranial hemorrhage and multiple rib fractures and spine fracture. Sent back to rehab for short period of time and then discharged home. He has a chronic shuffling gait
which has gotten worse. He was diagnosed with dementia in 2019. He was seeing neurology. At baseline he cannot speak and he has very advanced dementia. He sometimes does get aggressive recently. He has had cough for the past few weeks. No
shortness of breath. He has been having regular bowel movements. No fever, vomiting or diarrhea. He has been eating regular food but recently did have some difficulty swallowing. notes that currently he looks uncomfortable and he is having
occasional jerking movements. He is a former smoker. No longer smokes or drinks alcohol.
Physical therapy recommended rehab, pending placement.
Assessment/plan:
ambulatory dysfunction/falls secondary to progressive severe dementia
- CT head shows no acute abnormality
- Urinalysis unremarkable
- chest x-ray neg for acute findings
- SPT following
- PT/OT, case management, needs memory care
- continue TRANSITIONAL CARE LIAISON donepezil, memantine, aripiprazole
Severe dementia without current agitation
Recent brain hemorrhage
Recent cervical spine fracture
History of nephrolithiasis
Prostate cancer status post TURP
Code: Full code
DVT prophylaxis: SC Heparin
Disposition: medically stable pending placement. d/w CM.
More than 30 minutes spent in discharge including
Final examination of the patient
Summarizing hospital stay
Instructions for continuing care to all relevant caregivers
Preparation of discharge records, prescriptions, and referral forms
Total time spent (in minutes): 41
Anticipated Discharge: Today
Subjective/Interval History
-
Date of Service: June 04, 2025
resting comfortably, no complaints at present
Objective Data
-
Vital Signs:
Vital Signs
Temp Pulse Resp BP Pulse Ox
97.5 F 68 18 111/70 97
06/04/25 08:03 06/04/25 08:03 06/04/25 08:03 06/04/25 08:03 06/04/25 08:03
I&O
06/03/25 06/04/25 06/05/25
06:59 06:59 06:59
Intake Total 480 / 480 580 / 580
Balance 480 / 480 580 / 580
Physical Exam
-
General: No Apparent Distress
HEENT: Normocephalic and Atraumatic
Respiratory: Negative Wheezes
Cardiac: Regular Rhythm and S1/S2
GI: Soft and Nontender
Genito-urinary: No Costovertebral Tender
Neuro: Awake
Psych: Calm and Apparent Dementia
Data Reviewed
-
Total Time Spent with Patient (in minutes): 41
Labs: Labs Reviewed by me
--- NOTE | 2025-06-04 09:47 | W.DCSUMMARY ---
Discharge Summary
Discharge Data
Date of Admission: 05/26/25
Date of Discharge: 06/04/25
-
Pending Results: No
Hospital Course
80 y/o M, history of dementia, prior GIG TENDER hemorrhage/cervical spine fracture in February, hx of prostate cancer s/p TURP presented on 05/26 for increasing falls since February along with progressive dementia with aggressive behavior. No other complaints.
Patient had ambulatory dysfunction and PT/OT consulted. He was placed in Memory care on 06/04. No med changes were made during hospitalization.
Discharge Plan
-
Patient Disposition: Fdc/SNF
Discharge Diagnosis/Procedures: ambulatory dysfunction/falls secondary to progressive severe dementia
Condition: Fair
Diet: As tolerated and Regular
Activity: With assistance and As tolerated
Bathing Restrictions: None
Other Services: PT and OT
Referrals:
Haris Trevino MD [Family Provider, [facility]]
Prescriptions:
Continued
donepezil 10 mg tablet
10 mg PO HS Qty: 30 0RF
memantine 10 mg tablet
10 mg PO BID Qty: 60 0RF
aripiprazole 2 mg tablet
2 mg PO DAILY Qty: 30 0RF
Discharge Orders:
Discharge Patient (As Directed); Ordered 06/04/25
Ordered By: Ruth Salas
Discharge Date and Time
Print Language: BENGALI
--- NOTE | 2025-06-04 10:27 | CM ---
Addendum entered by Moisés Colón 06/04/25 14:18:
Updated fax number: [phone]
Original Note:
Chart reviewed. REY spoke w/ Teddy/interim director at [facility]. Confirmed patient will be admitting to facility at d/c, can anticipate admission today once all paperwork is received. Requesting d/c medication scripts (hard copies), PT/OT script
and completed Documentation of Medical Evaluation (DME) form to be submitted. TT hospitalist for hard scripts.
REY faxed all scripts and DME form to [phone] and fax attached into [facility]
Patient will need ambulance transport, forms on chart
[facility]
Report: [phone] (Marilyn)

Plan: D/c to [facility]
== END 2025-06-04 16:15 | disposition home or self-care (01) ==
LOC: 4 WEST ACU 16:25
PROVIDERS: Physician Assistant; ADMITTING PHYSICIAN Hospitalist; ATTENDING PHYSICIAN Internal Medicine; EMERGENCY PHYSICIAN Emergency Medicine; FAMILY PHYSICIAN Family Medicine
DX: R26.2 Difficulty in walking, not elsewhere classified (principal); F03.C11 Unspecified dementia, severe, with agitation; Z86.73 Personal history of transient ischemic attack (TIA), and cerebral infarction without residual deficits; Z85.46 Personal history of malignant neoplasm of prostate; R62.7 Adult failure to thrive; R47.01 Aphasia; Z91.81 History of falling; Z90.79 Acquired absence of other genital organ(s); Z87.891 Personal history of nicotine dependence
CPT/HCPCS: 70450; 71045; 80048; 80053; 81003; 81015; 85025; 87086; 92526; 92610; 96360; 97116; 97163; 97167; 97530; 97535; 99284; G0378